=== PATIENT | female | born 1995 | race Caucasian/White ===

== ENCOUNTER 2020-04-30 19:59 | Emergency (ER) | payer OTHER ==
[~2020-04-30] VITALS: Ht 170.2 cm; Wt 122.0 kg
--- NOTE | 2020-04-30 20:01 | PHYS DOC ---
Past History Past Medical History: UTI General Adult HPI: HPI: '... I am about 6 weeks .. this is my second .. I had some spotting yesterday... then today.. I started getting a lot of bleeding.. like a period... and some cramping and back pain.. " Patient is a 25 year old female who presents with above hx . Has complaints of reported of approximately 6 weeks with vaginal bleeding and cramping. Patient states the bleeding started yesterday at first just spotting but today the bleeding is at the level of a regular menses. No history of coagulopathy. Patient states her diagnosis of was with home test. This is her second . Patient is on vitamins. Patient plans to deliver at [facility]. Patient first was uncomplicated with the exception of frequent urinary tract infections.. Patient denies any trauma. Patient denies any travel. Patient denies any severe ill contacts. Patient denies any domestic abuse . Patient has had approximately 20 lifetime sex partners. Patient did have frequent UTIs with first . Patient [facility] for management of this . Review of Systems: Review of Systems: Constitutional: Denies fever or chills Eyes: Denies change in visual acuity HENT: Denies nasal congestion or sore throat Respiratory: Denies cough or shortness of breath Cardiovascular: Denies chest pain or edema GI: Complains of lower pelvic abdominal pain, nausea. Denies, vomiting, bloody stools or diarrhea : Denies dysuria Musculoskeletal: Complains of lower sacral and lumbar back pain . Integument: Denies rash Neurologic: Denies headache, focal weakness or sensory changes Endocrine: Denies polyuria or polydipsia Lymphatic: Denies swollen glands Psychiatric: Denies depression or anxiety Family History: Family History: Noncontributory to presentation Current Medications: Current Meds: vitamins Allergies: Allergies: No known drug allergies Physical Exam: PE: Constitutional: Moderate acute distress, non-toxic appearance. [] HENT: Normocephalic, atraumatic, bilateral external ears normal, oropharynx moist, no oral exudates, nose normal. [] Eyes: PERRLA, EOMI, conjunctiva normal, no discharge. [] Neck: Normal range of motion, no tenderness, supple, no stridor. [] Cardiovascular:Heart rate regular rhythm, no murmur [] Lungs & Thorax: Bilateral breath sounds equal at apex auscultation [] Abdomen: Bowel sounds normal, soft, mild lower pelvic tenderness, no masses, no pulsatile masses. Patient does have bleeding from the os. Mild cervical motion tenderness. Unable to localize any adnexal focal tenderness bilaterally . Rectal no gross blood. Nontender. Hard stool. [] Skin: Warm, dry, no erythema, no rash. Tattoos Back: No tenderness, no CVA tenderness. [] Extremities: No tenderness, no cyanosis, no clubbing, ROM intact, no edema. No psoas sign. Neurologic: Alert and oriented X 3, normal motor function, normal sensory function, no focal deficits noted. DTRs are +2 at brachial and patella Psychologic: Affect anxious, judgement normal, mood normal. [] EKG: EKG: [] Radiology/Procedures: Radiology/Procedures: [][place] [address] IMAGING REPORT Signed PATIENT: SHAYLEE HOOPER ACCOUNT: [id number] : 1995 LOCATION: ER AGE: 25 SEX: F EXAM STATUS: REG ER ORD. PHYSICIAN: DANY MOMIN MD REASON: preg., pain, bleeding, MAI AWARE @2230 PROCEDURE: PREG 1ST TRIMESTER PREG 1ST TRIMESTER DATE: 04/30/2020 10:24 PM INDICATION: preg., pain, bleeding,. LMP 03/20/2020 COMPARISON: None. TECHNIQUE: Transvaginal ultrasonography of the pelvis was performed. Color Doppler and duplex were utilized as appropriate. FINDINGS: The uterus measures 11.2 x 7.2 x 5.8 cm. The gestational sac is visualized with mean sac diameter of 1.15 cm, corresponding to a gestational age of 6 weeks 0 days. Yolk sac is present. No pole or heart tones are identified. Normal amniotic fluid. There is no free pelvic fluid. The right ovary measures 3.0 x 1.9 x 1.7 cm. The left ovary measures 2.6 x 2.3 x 1.9 cm. No evidence of ovarian torsion. There is normal blood flow to both ovaries by color Doppler with arterial and venous waveforms detected. IMPRESSION: Gestational sac is seen within measurements corresponding to an estimated ultrasound gestational age of 6 weeks and 0 days. No pole or heart tones are visualized. This may relate to very early first trimester versus failed first trimester . Short-term follow-up ultrasound and hCG are recommended. Electronically signed by: Quyen Gibson MD (05/01/2020 12:36 AM) [facility] DICTATED AND SIGNED BY: QUYEN GIBSON MD DATE: 05/01/20 0036 Heart Score: Risk Factors: Risk Factors: DM, Current or recent (<one month) smoker, HTN, HLP, family history of CAD, obesity. Risk Scores: Score 0 - 3: 2.5% MACE over next 6 weeks - Discharge Home Score 4 - 6: 20.3% MACE over next 6 weeks - Admit for Clinical Observation Score 7 - 10: 72.7% MACE over next 6 weeks - Early Invasive Strategies Course & Med Decision Making: Course & Med Decision Making Pertinent Labs and Imaging studies reviewed. (See chart for details) Patient continue monitor bleeding. Continue pad counts. Push fluids. Take a daily vitamin C. May take Tylenol for pain. Must have a repeat checkup beta- hCG in 3 days. Patient issued a Disc of US to show to her OBGYN. Keep follow- up appointments. Follow-up pending cultures. Encourage patient to follow-up at hospital where she plans to deliver for continuity of care. Take Keflex 500 mg 3 times a day. Impression: 1. Threatened miscarriage or 2. Possible intrauterine -6 weeks (No confirmed cardiac activity at this time) 3. Blood type O+ Positive 4. 2, Term 1 vaginal 5. Urinary tract infection 6 . [id number] [] Dragon Disclaimer: Dragon Disclaimer: This electronic medical record was generated, in whole or in part, using a voice recognition dictation system. Departure Departure: Referrals: PCP,NO (PCP) Scripts Cephalexin (KEFLEX) 500 Mg Capsule 500 MG PO TID for uti for 7 Days, BOTTLE Prov: DANY MOMIN MD 05/01/20 Raman Disclaimer This chart was dictated in whole or in part using Voice Recognition software in a busy, high-work load, and often noisy Emergency Department environment. It may contain unintended and wholly unrecognized errors or omissions. DANY MOMIN MD Apr 30, 2020 20:01
[2020-04-30] MEDS ORDERED: IV RINGERS SOLUTION,LACTATED 1,000 ML IV SCH (20:15)
[2020-04-30] MEDS ORDERED: ONDANSETRON PF 4 MG/2 ML VIAL. IVP ONE (20:15)
[2020-04-30] MEDS ORDERED: FAMOTIDINE 20 MG/2 ML VIAL IVP ONE (20:15)
[2020-04-30 20:59] LABS: BARBITURATES NEG (NEG); BENZODIAZEPINES NEG (NEG); CANNABINOIDS NEG (NEG); COCAINE NEG (NEG); METHADONE NEG (NEG); OPIATES NEG (NEG); PHENCYCLIDINE NEG (NEG)
[2020-04-30 21:02] LABS: AMPHETAMINE/METHAMPHETAMINE NEG (NEG)
[2020-04-30 21:06] LABS: CLARITY,URINE HAZY; COLOR,URINE PINK
[2020-04-30 21:07] LABS: BILIRUBIN,URINE NEG (NEG); GLUCOSE,URINE NEG (NEG); NITRITE,URINE NEG (NEG); UROBILINOGEN,URINE 0.2 mg/dL (0.2 mg/dL)
[2020-04-30 21:08] LABS: BACTERIA,URINE 0 /HPF (0-FEW); RBC,URINE TNTC /HPF (0-2); WBC,URINE 20-40 /HPF (0-4)
[2020-04-30] MEDS ORDERED: CEPHALEXIN 250 MG CAPSULE PO ONE (21:15)
[2020-04-30 21:21] LABS: U PREG PATIENT POSITIVE (NEG)
[2020-04-30 22:28] LABS: BASO % 1 % (0-3); EOS # 0.1 x10^3/uL (0.0-0.7); EOS % 1 % (0-3); HEMATOCRIT 42.3 % (36.0-47.0); HEMOGLOBIN 13.6 g/dL (12.0-15.5); LYMPH # 3.2 x10^3/uL (1.0-4.8); LYMPH % 31 % (24-48); MEAN CORPUSCULAR HEMOGLOBIN 28 pg (25-35); MEAN CORPUSCULAR HGB CONC 32 g/dL (31-37); MEAN CORPUSCULAR VOLUME 88 fL (79-100); MONO # 0.7 x10^3/uL (0.0-1.1); MONO % 7 % (0-9); NEUT # 6.1 x10^3uL (1.8-7.7); NEUT % 60 % (31-73); PLATELET COUNT 298 x10^3/uL (140-400); WHITE BLOOD COUNT 10.1 x10^3/uL (4.0-11.0)
[2020-04-30 22:50] LABS: ANION GAP 13 (6-14); BLOOD UREA NITROGEN 10 mg/dL (7-20); CALCIUM 8.9 mg/dL (8.5-10.1); CARBON DIOXIDE 19 mmol/L (21-32); CHLORIDE 100 mmol/L (98-107); CREATININE 0.6 mg/dL (0.6-1.0); GFR 123.9; GLUCOSE 81 mg/dL (70-99); SODIUM 132 mmol/L (136-145)
[2020-04-30 22:56] LABS: ALBUMIN 3.1 g/dL (3.4-5.0); ALK PHOS 96 U/L (46-116); ALT (SGPT) 22 U/L (14-59); AST (SGOT) 38 U/L (15-37); LIPASE 104 U/L (73-393); TOTAL BILIRUBIN 0.4 mg/dL (0.2-1.0); TOTAL PROTEIN 7.5 g/dL (6.4-8.2)
[2020-04-30 23:00] LABS: DIRECT BILIRUBIN < 0.1 mg/dL (0.0-0.2); POTASSIUM 4.3 mmol/L (3.5-5.1)
--- NOTE | 2020-05-01 00:39 | RAD ---
PREG 1ST TRIMESTER DATE: 04/30/2020 10:24 PM INDICATION: preg., pain, bleeding,. LMP 03/20/2020 COMPARISON: None. TECHNIQUE: Transvaginal ultrasonography of the pelvis was performed. Color Doppler and duplex were utilized as appropriate. FINDINGS: The uterus measures 11.2 x 7.2 x 5.8 cm. The gestational sac is visualized with mean sac diameter of 1.15 cm, corresponding to a gestational age of 6 weeks 0 days. Yolk sac is present. No pole or heart tones are identified. Normal amniotic fluid. There is no free pelvic fluid. The right ovary measures 3.0 x 1.9 x 1.7 cm. The left ovary measures 2.6 x 2.3 x 1.9 cm. No evidence of ovarian torsion. There is normal blood flow to both ovaries by color Doppler with arterial and venous waveforms detected. IMPRESSION: Gestational sac is seen within measurements corresponding to an estimated ultrasound gestational age of 6 weeks and 0 days. No pole or heart tones are visualized. This may relate to very early first trimester versus failed first trimester . Short-term follow-up ultrasound and hCG are recommended. Electronically signed by: Nikolay Gibson MD (05/01/2020 12:36 AM) [facility]
[2020-05-01] MEDS ORDERED: CEPH-264 PO (00:51)
[2020-05-01] MEDS ORDERED: oxyCODONE/APAP 5/325 1 TAB TABLET PO ONE (01:30)
[2020-05-01 01:42] VITALS: BP 152/78
[2020-05-02 19:08] LABS: CHLAMYDIA PROBE Negative (Negative)
== END 2020-05-01 01:45 | disposition home or self-care (01) ==
LOC: ER 19:59
DX: O20.0 Threatened abortion (principal); O23.41 Unspecified infection of urinary tract in pregnancy, first trimester; M54.5 Low back pain; Z3A.01 Less than 8 weeks gestation of pregnancy
CPT/HCPCS: 36415; 76801; 80048; 80076; 80307; 81001; 81025; 83690; 84443; 84702; 85025; 85610; 85730; 86900; 86901; 87086; 87491; 87591; 96361; 96374; 96375; 99284; J2405; J3490; J7120; Q0111